=== PATIENT | male | born 1945 | race Caucasian/White ===

== ENCOUNTER 2023-11-28 08:00 | Outpatient (CLI) | payer SELFPAY ==
--- NOTE | 2023-11-28 10:40 | XRAY Report ---
PROCEDURE: Chest 2V INDICATIONS: PRODUCTIVE COUGH TECHNIQUE: 2 views of the chest were acquired. COMPARISON: None. FINDINGS: Surgical changes and devices: None. Lungs and pleura: Moderate peribronchial thickening. Possible mild opacities at the lung bases seen on lateral view. Mediastinum: Normal heart size. Bones and chest wall: Degenerative changes. IMPRESSION: Moderate peribronchial thickening and possible mild basal lung opacities on lateral view. These are l ikely infectious/inflammatory. There is possible chronic underlying lung disease such as emphysema or chronic bronchitis. Consider surveillance chest imaging. Reviewed by: Thomas Nath MD on 11/28/2023 10:39 AM PDT Approved by: Thomas Nath MD on 11/28/2023 10:39 AM PDT Station ID: [id number]
== END 2023-11-28 23:59 | disposition home or self-care (01) ==
LOC: DI.S 08:00
PROVIDERS: ATTEND Physician Assistant
DX: R05.8 Other specified cough (principal)

== ENCOUNTER 2023-12-15 07:00 | Outpatient (CLI) | payer SELFPAY ==
--- NOTE | 2023-12-16 09:35 | XRAY Report ---
PROCEDURE: Chest 2V INDICATIONS: PRODUCTIVE COUGH TECHNIQUE: 2 views of the chest were acquired. COMPARISON: 11/28/2023 FINDINGS: Surgical changes and devices: None. Lungs and pleura: Slightly decreased opacities seen in the lung bases on lateral view. Peribronchial cuffing. Emphysema. Mediastinum: Mediastinal contours appear normal. Heart size is normal. Bones and chest wall: No suspicious bony lesions. Overlying soft tissues appear unremarkable. IMPRESSION: Slightly decreased opacities in the lung bases compared to prior. 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 Consider low-dose chest CT given persistence and for further characterization. Reviewed by: Edward Melgoza MD on 12/16/2023 9:34 AM PDT Approved by: Edward Melgoza MD on 12/16/2023 9:34 AM PDT Station ID: [id number]
== END 2023-12-15 23:59 | disposition home or self-care (01) ==
LOC: DI.S 07:00
PROVIDERS: ATTEND Emergency Medicine
DX: R05.8 Other specified cough (principal); R91.8 Other nonspecific abnormal finding of lung field

== ENCOUNTER 2023-12-20 10:12 | Outpatient (CLI) | payer SELFPAY ==
--- NOTE | 2023-12-20 12:19 | XRAY Report ---
PROCEDURE: Chest 2V INDICATIONS: EMPHYSEMA TECHNIQUE: 2 views of the chest were acquired. COMPARISON: 12/15/2023, 11/28/2023 FINDINGS: Surgical changes and devices: None. Lungs and pleura: Emphysema. Decreased retrocardiac opacity compared with priors. Mediastinum: Mediastinal contours appear normal. Heart size is normal. Bones and chest wall: No suspicious bony lesions. Overlying soft tissues appear unremarkable. IMPRESSION: Decreased retrocardiac opacity compared with priors. Reviewed by: Edward Melgoza MD on 12/20/2023 12:18 PM PDT Approved by: Edward Melgoza MD on 12/20/2023 12:18 PM PDT Station ID: [id number]
== END 2023-12-20 10:13 | disposition home or self-care (01) ==
LOC: DI.S 10:12
PROVIDERS: ATTEND Emergency Medicine
DX: J43.9 Emphysema, unspecified (principal)

== ENCOUNTER 2024-02-07 08:36 | Outpatient (CLI) | payer SELFPAY ==
[2024-02-07 08:56] LABS: BASOPHILS # (AUTO) 0.1 10^3/uL (0.0-0.1); BASOPHILS % (AUTO) 1.5 %; EOSINOPHILS # (AUTO) 0.4 10^3/uL (0.0-0.7); EOSINOPHILS % (AUTO) 7.1 %; HCT - HEMATOCRIT 43.8 % (42.0-52.0); HGB - HEMOGLOBIN 14.1 g/dL (14.0-18.0); LYMPHOCYTES % (AUTO) 18.2 %; MEAN CORPUSCULAR HEMOGLOBIN 29.5 pg (27.0-31.0); MEAN CORPUSCULAR HGB CONC 32.2 g/dL (32.0-36.0); MEAN CORPUSCULAR VOLUME 91.6 fL (80.0-94.0); MEAN PLATELET VOLUME 10.2 fL (7.4-11.4); MONOCYTES # (AUTO) 0.7 10^3/uL (0.0-1.0); NEUTROPHILS # (AUTO) 3.4 10^3/uL (1.5-6.6); PLT - PLATELET COUNT 207 10^3/uL (130-450); RED BLOOD COUNT 4.78 10^6/uL (4.70-6.10); RED CELL DISTRIBUTION WIDTH 14.9 % (12.0-15.0); WHITE BLOOD COUNT 5.5 x10^3/uL (4.8-10.8)
[2024-02-07 09:16] LABS: ALBUMIN/GLOBULIN RATIO 1.4 (1.0-2.2); BILIRUBIN,TOTAL 0.7 mg/dL (0.2-1.0); CALCIUM 9.3 mg/dL (8.5-10.3); POTASSIUM 4.3 mmol/L (3.5-4.5); TOTAL PROTEIN 6.9 g/dL (6.4-8.9)
[2024-02-07 09:52] LABS: ESTIMATED AVERAGE GLUCOSE 103 mg/dL (70-100); HEMOGLOBIN A1c% 5.2 % (4.27-6.07)
== END 2024-02-07 08:37 | disposition home or self-care (01) ==
LOC: LAB 08:36
PROVIDERS: ATTEND Internal Medicine
DX: R79.9 Abnormal finding of blood chemistry, unspecified (principal); M81.0 Age-related osteoporosis without current pathological fracture
CPT/HCPCS: 36415; 80053; 83036; 83690; 85025; 85651

== ENCOUNTER 2024-03-15 11:26 | Outpatient (CLI) | payer SELFPAY | END 2024-03-15 11:27 | disposition home or self-care (01) | LOC: LAB.S 11:26 | PROVIDERS: ATTEND Internal Medicine | DX: R82.90 Unspecified abnormal findings in urine (principal) | CPT/HCPCS: 84156 ==